=== PATIENT | female | born 1965 | race Caucasian/White ===

== ENCOUNTER → 2016-11-25 | Outpatient (CLI) | payer BC ==
[~2016-11-25] MED LIST: EFFEXOR 75M75 MG/TAB PO; HYZAAR 25 MG-101 TAB PO; NORCO 325 MG-51 TAB PO; PERIDEX (CHLOR480 ML MM; PREDNISONE20 MG PO; ZOFRAN ODT4 MG PO
== END ==
LOC: MC.RAD 13:36
DX: Z12.31 Encounter for screening mammogram for malignant neoplasm of breast (principal); Z98.82 Breast implant status

== ENCOUNTER 2017-11-07 16:00 | Outpatient (RCR) | payer BC | END 2018-01-08 | disposition home or self-care (01) | LOC: WSPT | DX: M25.511 Pain in right shoulder (principal) | CPT/HCPCS: G0283-GP ==

== ENCOUNTER → 2019-07-02 | Outpatient (CLI) | payer BC | LOC: MC.RAD 13:57 | DX: Z12.31 Encounter for screening mammogram for malignant neoplasm of breast (principal) ==

== ENCOUNTER 2020-01-02 11:09 | Outpatient (RCR) | payer OTHER ==
[~2020-01-02 11:09] MED LIST changes: +SINGULAIR 110 MG/TAB PO; +VITAMINC500CH
== END 2020-02-24 | disposition home or self-care (01) ==
LOC: WSOT
DX: M79.641 Pain in right hand (principal)

== ENCOUNTER 2023-03-20 13:30 | Outpatient (RCR) | payer OTHER | END 2023-03-22 | disposition home or self-care (01) | LOC: WSPT | DX: H81.13 Benign paroxysmal vertigo, bilateral (principal) ==